=== PATIENT | female | born 1940 | race Caucasian/White ===

== ENCOUNTER → 2023-02-15 15:25 | Outpatient (BNVA) | payer MEDICARE, SELFPAY | PROVIDERS: PCP Nurse Practitioner; Visit Provider Internal Medicine Endocrinology, Diabetes & Metabolism | DX: E83.52 Hypercalcemia (principal) | CPT/HCPCS: 99202 ==

== ENCOUNTER 2023-04-04 08:52 | Outpatient (REF) | payer MEDICARE, SELFPAY ==
[2023-04-04 09:48] LABS: Albumin Level 3.6 g/dL (3.5-5.0)
[2023-04-07 05:43] LABS: Calcium (PTHI) 10.8 mg/dL (8.6-10.4); PTHI 87 pg/mL (16-77)
== END 2023-04-04 08:53 | disposition home or self-care (01) ==
LOC: HO.10HDL 08:52
PROVIDERS: Visit Provider Internal Medicine Endocrinology, Diabetes & Metabolism
DX: E83.52 Hypercalcemia (principal)
CPT/HCPCS: 36415; 82040; 83970

== ENCOUNTER 2023-04-25 08:48 | Outpatient (REF) | payer MEDICARE, SELFPAY ==
--- NOTE | ~2023-04-25 | MM_ITS ---
EXAMINATION: BONE DENSITOMETRY CLINICAL INDICATION: Primary hyperparathyroidism. COMPARISON: This is the patient's baseline examination. TECHNIQUE: Using a [employer] DXA System (software version: 13.1) manufactured by [employer], dual-energy x-ray absorptiometry was performed of the lumbar spine, left hip, and left forearm radius 33%. The images are of good technical quality. Summary results are attached. FINDINGS: AP SPINE L1-L4: BMD 1.015 g/cm2, Z-score 0.4, T-score -1.4, osteopenia. LEFT FEMUR, NECK: BMD 0.848 g/cm2, Z-score 0.8, T-score -1.4, osteopenia. LEFT FEMUR, TOTAL: BMD 0.721 g/cm2, Z-score -0.3, T-score -2.3, osteopenia. LEFT FOREARM RADIUS 33%: BMD 0.695 g/cm2, Z-score 0.7, T-score -2.1, osteopenia. IDENTIFIED RISK FACTORS: Hyperparathyroidism, tobacco use (current smoker), menopause, bilateral oophorectomy. HISTORY OF FRACTURE: None listed. MEDICATIONS: Calcium or multivitamin. MM/XR DEXA appendicular skeleton IMPRESSION: 1. DIAGNOSIS: Osteopenia based on the lowest T-score value of -2.3 in the total femur applying World Health Organization criteria. 2. 10-YEAR FRACTURE RISK PREDICTION, FRAX: Major osteoporotic fracture (clinical spine, forearm, hip or shoulder) 13.6%. Hip fracture 5.0%. 3. Treatment Recommendations: NOF guidelines recommend consideration for treatment in postmenopausal women and men age 50 and older presenting with the following: -A hip or vertebral (clinical or morphometric) fracture. -T-score less than or equal to -2.5 at the femoral neck or spine after appropriate evaluation to exclude secondary causes. -Low bone mass at the hip or spine and a 10-year fracture probability by FRAX of greater than or equal to 3% for hip fracture or greater than or equal to 20% for major osteoporotic fracture based on the [place] adapted WHO algorithm. 4. Other Recommendations: All treatment decisions require clinical judgment and consideration of individual patient factors, including patient preferences, comorbidities, previous drug use, risk factors not captured in the FRAX model (e.g. frailty, falls, vitamin D deficiency, increased bone turnover, interval significant decline in bone density) and possible under or overestimation of fracture risk by FRAX. Additional medical evaluation for secondary cause of low bone mineral density may be appropriate. FUTURE SCAN RECOMMENDATION: People with diagnosed cases of osteoporosis or at high risk for fracture should have regular bone mineral density tests. For patients eligible for Medicare, routine testing is allowed once every 2 years. The testing frequency can be increased to one year for patients who have rapidly progressing disease, those who are receiving or discontinuing medical therapy to restore bone mass, or have additional risk factors.
== END 2023-04-25 08:49 | disposition home or self-care (01) ==
LOC: HO.MAMMO 08:48
PROVIDERS: PCP Nurse Practitioner; Visit Provider Internal Medicine Endocrinology, Diabetes & Metabolism
DX: E21.0 Primary hyperparathyroidism (principal)
CPT/HCPCS: 77081

== ENCOUNTER → 2023-04-25 08:50 | Outpatient (BNV) | payer MEDICARE, SELFPAY | PROVIDERS: PCP Nurse Practitioner; Visit Provider Radiology Diagnostic Radiology | DX: M85.89 Other specified disorders of bone density and structure, multiple sites (principal) | CPT/HCPCS: 77081 ==

== ENCOUNTER 2023-04-26 08:36 | Outpatient (REF) | payer MEDICARE, SELFPAY ==
[2023-04-26 11:15] LABS: Estimated Glomerular Filt Rate > 60
[2023-04-26 11:31] LABS: Creatinine, mg/dL 66.33
[2023-04-26 15:27] LABS: Creatinine, 24Hr Urine 0.7 G/Day (1.0-2.0); Total Volume 24 Hour Urine 1050 mL
[2023-04-27 19:38] LABS: Calcium (PTHI) 11.3 mg/dL (8.6-10.4); PTHI 79 pg/mL (16-77)
[2023-04-28 18:03] LABS: Calcium, 24 Hr Urine 226 mg/24 h; Calcium/Creatinine Ratio 341 mg/g creat (30-275); Creatinine 24Hr Urine 0.66 g/24 h (0.50-2.15)
== END 2023-04-26 08:37 | disposition home or self-care (01) ==
LOC: HO.10HDL 08:36
PROVIDERS: Visit Provider Internal Medicine Endocrinology, Diabetes & Metabolism
DX: E83.52 Hypercalcemia (principal)
CPT/HCPCS: 36415; 82340; 82565; 82570; 83970

== ENCOUNTER 2023-04-27 08:11 | Outpatient (REF) | payer MEDICARE, SELFPAY ==
--- NOTE | ~2023-04-27 | US_ITS ---
EXAMINATION: US RETROPERITONEAL LIMITED (RENAL ONLY) CLINICAL INFORMATION: Hypercalcemia. Primary hyperparathyroidism. Evaluate for kidney stones. COMPARISON: None available. TECHNIQUE: Real-time imaging of the kidneys. Limited visualization due to bowel gas. FINDINGS: RIGHT KIDNEY: 11.7 x 4.8 x 5.4 cm (SAG x AP x TRV). No hydronephrosis. No renal calculi. Renal cortical thickness is normal. Limited visualization. 2.0 x 1.7 x 1.8 cm and 0.8 x 0.8 x 1.1 cm lower pole cysts, Bosniak 1. There is no indication for follow-up imaging. LEFT KIDNEY: 11.2 x 4.3 x 4.6 cm (SAG x AP x TRV). No hydronephrosis. Renal cortical thickness is normal. Limited visualization. Tiny echogenic foci scattered throughout the left kidney may represent tiny nonobstructive calculi. US/US renal BI IMPRESSION: Tiny echogenic foci scattered throughout the left kidney may represent tiny nonobstructive calculi. No hydronephrosis.
== END 2023-04-27 08:12 | disposition home or self-care (01) ==
LOC: HO.US 08:11
PROVIDERS: PCP Nurse Practitioner; Visit Provider Internal Medicine Endocrinology, Diabetes & Metabolism
DX: E83.52 Hypercalcemia (principal)
CPT/HCPCS: 76775

== ENCOUNTER 2023-05-02 09:04 | Outpatient (REF) | payer MEDICARE, SELFPAY ==
--- NOTE | ~2023-05-02 | MM_ITS ---
EXAMINATION: DXA VERTEBRAL FRACTURE ASSESSMENT CLINICAL INFORMATION: Primary hyperparathyroidism. COMPARISON: None available. TECHNIQUE: Your patient completed a vertebral fracture assessment using the [employer] DXA system (software version: 14.10) manufactured by [employer]. The following summarizes the results of our evaluation. LVA MORPHOMETRY RESULTS: Evaluation of the thoracolumbar spine from T4 through L4 was performed. Image quality is good. The lowest Z score is -3.3. The highest Z score is 4.0. There is approximately 20% compression fracture midportion of the T6 vertebral body. There is a superior endplate compression fracture of L1 without significant loss of height. MM/XR DEXA vertrebral fracture IMPRESSION: 20% compression fracture of T6. RECOMMENDATIONS: All patients should ensure an adequate intake of dietary calcium (1200 mg/d) and vitamin D (400-800 IU/d). Effective therapies are now available in the form of bisphosphonates, (alendronate, ibandronate, risedronate, zoledronic acid), antiresorptive agents (calcitonin, estrogen + progesterone and raloxifene) and anabolic agent (teriparatide). These therapies may reduce vertebral, hip and other fractures by up to 50%. FOLLOW UP: People with diagnosed cases of osteoporosis, high risk for fracture, or current vertebral fractures should have regular bone mineral density tests. The frequency of followup vertebral fracture assessment tests should be determined based on clinical circumstances. Often times, testing frequency will be based on rapidly progressing disease, or the addition or elimination of therapy to treat the disease.
== END 2023-05-02 09:05 | disposition home or self-care (01) ==
LOC: HO.MAMMO 09:04
PROVIDERS: PCP Nurse Practitioner; Visit Provider Nurse Practitioner
DX: E21.0 Primary hyperparathyroidism (principal)
CPT/HCPCS: 77086

== ENCOUNTER → 2023-05-02 09:15 | Outpatient (BNV) | payer MEDICARE, SELFPAY | PROVIDERS: PCP Nurse Practitioner; Visit Provider Radiology Diagnostic Radiology | DX: M80.08XA Age-related osteoporosis with current pathological fracture, vertebra(e), initial encounter for fracture (principal) | CPT/HCPCS: 77086 ==

== ENCOUNTER 2023-06-05 08:26 | Outpatient (AMB) | payer MEDICARE, SELFPAY ==
--- NOTE | 2023-06-05 08:35 | A.OFFVIS_ITS ---
Intake Vital Signs 06/05/23 08:38 Height 5 ft 5 in Weight 144 lb 9.972 oz BMI 24.1 BP 144/80 H Blood Pressure Location Lt brachial Position Sitting Pulse 78 Pulse Source Pulse Oximeter Intake Visit Reasons: Hypercalcemia/Elevated PTH/LVM Intake Note: Patient present for Hypercalcemia and Elevated PTH follow up visit. Supervisor Testing Required: No Accompanied by: Other Relationship Allergies No Known Allergies Allergy (Verified 06/05/23 08:41) Medication List - Last Reconciled 06/05/23 by Rocco Glass MD aspirin 81 mg PO DAILY atenolol 50 mg PO DAILY losartan 75 mg PO DAILY multivitamin 1 tab PO DAILY simvastatin 20 mg PO BEDTIME HPI HPI Comments History of Present Illness Details 83 YO F with who is seen in consultatio n at the request of PCP for Hypercalcemia. First noted to have high calcium 3 mos a go . No Currently using Calcium supplement . Not Takes Vitamin D daily. Currently using HCTZ. ON HCTZ for 10 yrs . Kidney stones: No Osteoporosis: No History of [place] use: No Biotin use: Yes for 1 yr Family history of high calcium or kidney stones: No Renal imaging: Tiny echogenic foci scattered throughout the left kidney may represent tiny nonobstructive calculi. No hydronephrosis. DXA:IMPRESSION: VFA showed 20% compression fracture of T6. Labs: Off hydrochlorothiazide calcium U equals 11.3 Recently, diagnosed with lung cancer and is undergoing staging and possible treatment [facility] Medical History (Updated 04/10/23 @ 10:31 by Rocco Glass MD) Primary hyperparathyroidism Hypercalcemia Surgical History History of wisdom tooth extraction History of surgery Family History Mother Heart disease Social History Alcohol intake: current Alcohol intake frequency: holidays/special occasions only Patient Tobacco Use Status: Current everyday Tobacco user Physical Exam Vital Signs: Last Vital Signs Pulse 78 06/05/23 08:38 BP 144/80 H 06/05/23 08:38 BMI result Body Mass Index 24.1 Assessment & Plan Assessment & Plan (1) Hypercalcemia: Code(s): E83.52 - Hypercalcemia Plan: This 83-year-old white female found to have hypercalcemia due to primary hyperparathyroidism The plan is to speak to the patient about potential parathyroid exploration considering the history of vertebral fracture discovered on the VFA, presence of kidney stones on renal ultrasound and degree of hypercalcemia. However, patient is undergoing treatment for lung cancer and surgical expiration May to be deferred temporarily. At this point, the degree of hypercalcemia does not warrant pharmacologic treatment with cinacalcet (2) Primary hyperparathyroidism: Code(s): E21.0 - Primary hyperparathyroidism Orders: Referrals General Surgery Referral E21.0 - Primary hyperparathyroidism Coding Level of Care Code Est Pt Level 3 (39530) Diagnoses Hypercalcemia E83.52 Primary hyperparathyroidism E21.0
[2023-06-05 08:38] VITALS: BP 144/80; PULSE 78; BMI 24.1
== END 2023-06-05 09:02 | disposition home or self-care (01) ==
PROVIDERS: PCP Nurse Practitioner; Visit Provider Internal Medicine Endocrinology, Diabetes & Metabolism
DX: E83.52 Hypercalcemia (principal)
CPT/HCPCS: 99213

== ENCOUNTER → 2023-06-05 08:26 | Outpatient (BNVA) | payer MEDICARE, SELFPAY | PROVIDERS: PCP Nurse Practitioner; Visit Provider Internal Medicine Endocrinology, Diabetes & Metabolism | DX: E83.52 Hypercalcemia (principal); E21.0 Primary hyperparathyroidism | CPT/HCPCS: 99212 ==